=== PATIENT | male | born 1955 | race Caucasian/White ===

== ENCOUNTER 2022-07-22 08:50 | Day surgery (SDC) | payer BC, SELFPAY ==
--- NOTE | 2022-07-21 13:33 | HO.ANESPROP2 ---
HPI - Anesthesia Eval Consult details Narrative: 66yo M for Colonoscopy PMFSH Past Medical History Medical History Acute bronchitis HTN (hypertension) Impaired fasting glucose Surgical History Surgical History H/O colonoscopy History of hand surgery History of left hip replacement Social History Social History Patient Tobacco Use Status: Former Tobacco user Use of substances other than those prescribed or required for medical reasons: No Are you DNR?: No Advance Directives: No Advance Directives Information Provided: Yes Recently lost weight without trying: Yes How much weight loss: 34pounds or more Nutrition Risks: No Nutritional Risk Meds Allergies Allergy/AdvReac Type Severity Reaction Status Date / Time anti perspirant Allergy Severe HIVES Uncoded 07/22/22 09:19 Home Medications Medication Instructions Recorded Confirmed Last Taken Type lisinopril 20 mg tablet 20 mg PO DAILY 07/21/22 07/21/22 Unknown History Exam Exam Date and Time: July 21, 2022 1333 Assessment and Plan Assessment Anesthesia Assessment: Chart Reviewed
[2022-07-22 09:20] VITALS: BMI 29.5
[2022-07-22 09:31] VITALS: BP 175/79; PULSE 65; RESP 16; TEMP 36.2; O2SAT 98
[2022-07-22 09:52] VITALS: BP 112/66; PULSE 71; RESP 16
[2022-07-22 09:56] VITALS: BP 127/67; PULSE 61; RESP 16; O2SAT 97
[2022-07-22] MEDS: Lactated Ringers 1,000 ML 100 ML IVCONT (09:56)
[2022-07-22 10:00] VITALS: BP 131/64; PULSE 61; RESP 16; O2SAT 98
--- NOTE | 2022-07-22 10:21 | MHC.SHP ---
Pre-Procedural Eval Section A Date of Service: 07/22/22 Section B Chief Complaint: screening Details of Present Illness: see H&P no changes Relevant Family History (Specify if Yes): No Relevant Social History: None Present Medications: see Short Stay Collaborative assessment Medical History: No relevant PMH History of Previous Operations: No relevant previous surgery Allergies: Allergies Allergy/AdvReac Type Severity Reaction Status Date / Time anti perspirant Allergy Severe HIVES Uncoded 07/22/22 09:19 Review of Systems Sugical H&P ROS: Negative: Constitution, Cardiovascular, Respiratory, Neurological, Psychiatric, Hem-Onc, Allergic/Immunologic, Gastrointestinal, Genitourinary, Musculoskeletal, Integumentary, Endocrine and Eyes/Ears/Nose/Throat Exam Surgical H&P Exam: Normal: HEENT, Normal: Heart, Normal: Lungs, Normal: Extremities, Normal: Abdomen, Normal: Skin and Normal: Neurological Plan Diagnosis/Plan: Unchanged I have reviewed the history and physical and performed a pertinent physical examination on my patient. No changes have occurred unless specified. Time Spent With Patient Time: Total time managing care of this patient today ____ minutes.
--- NOTE | 2022-07-22 10:28 | PC.NURSE ---
anti aware of vagal response.
--- NOTE | 2022-07-22 10:39 | P.CONAN_ITS ---
[facility] Past Medical History Medical History Acute bronchitis HTN (hypertension) Impaired fasting glucose Surgical History Surgical History H/O colonoscopy History of hand surgery History of left hip replacement History of Problems with Anesthesia: No Social History Social History Patient Tobacco Use Status: Former Tobacco user Use of substances other than those prescribed or required for medical reasons: No Are you DNR?: No Advance Directives: No Advance Directives Information Provided: Yes Recently lost weight without trying: Yes How much weight loss: 34pounds or more Nutrition Risks: No Nutritional Risk Meds Allergies Allergy/AdvReac Type Severity Reaction Status Date / Time anti perspirant Allergy Severe HIVES Uncoded 07/22/22 09:19 Active Medications: Current Medications Albuterol Sulfate (Albuterol Sulfate (0.083%) 2.5 Mg/3 Ml Vial.Neb) 2.5 mg INHALE ONCE PRN PRN Reason: Shortness of Breath/Wheezing Lactated Ringer's (Lr) 1,000 mls @ 100 mls/hr IVCONT .Q10H SHERRY Last Admin: 07/22/22 09:56 Dose: 100 mls/hr Home Medications Medication Instructions Recorded Confirmed Last Taken Type lisinopril 20 mg tablet 20 mg PO DAILY 07/21/22 07/21/22 Unknown History Exam Exam Date and Time: July 22, 2022 1039 Height,Weight and Vital Signs: Height 5 ft 6 in Weight 83.007 kg Last Vital Signs Temp 97.2 F 07/22/22 09:31 Pulse 61 07/22/22 10:00 Resp 16 07/22/22 10:00 BP 131/64 07/22/22 10:00 Pulse Ox 98 07/22/22 10:00 O2 Del Method Room Air 07/22/22 10:00 Airway Mallampati Class: III TM Dist: >3cm Neck ROM: Full Loose/Missing/Broken Teeth: No Heart: RRR Lungs: CTA Assessment and Plan Assessment Anesthesia Assessment: Anesthesia Plan Discussed and Chart Reviewed Final Anesthetic Review History of Problems with Anesthesia: No NPO: Yes ASA Class: II Final Preanesthetic Review: Meds/Allgs Chart Reviewed, Consent Obtained/Reviewed and Anes Risks/Benef Reviewed Patient Risk: Low Procedure Risk: Low Anesthetic Plan Anesthetic Plan: MAC: Disposition: Standard PACU
[2022-07-22 11:00] VITALS: BP 118/60; PULSE 65; RESP 16; TEMP 36.5; O2SAT 99
--- NOTE | 2022-07-22 11:03 | P.BOP_ITS ---
Brief Operative Note Date of Service: 07/22/22 Pre-op diagnosis: screening Post-op diagnosis: same Procedure: colonoscopy Surgeon: Jaden Avitia Anesthesia: MAC Was an Software Engineer Mobile used for this Procedure?: No Estimated blood loss (mL): 0 Pathology: none sent Condition: stable Disposition: PACU
[2022-07-22 11:15] VITALS: BP 136/78; PULSE 67; RESP 16; TEMP 36.6; O2SAT 98
--- NOTE | 2022-07-22 11:46 | OP_ITS ---
DATE OF SERVICE: 07/22/2022 SURGEON: Jaden Avitia MD INDICATIONS: Colon cancer screening. PREOPERATIVE DIAGNOSIS: POSTOPERATIVE DIAGNOSIS: PROCEDURE PERFORMED: Colonoscopy to the terminal ileum. ESTIMATED BLOOD LOSS: COMPLICATIONS: ANESTHESIA: Monitored anesthesia care. ASSISTANTS: SPECIMENS: DESCRIPTION OF PROCEDURE: The procedure was performed on 07/22/2022. A history and physical was performed. The risks and benefits of the procedure were explained to the patient. Informed consent was obtained. The patient was placed in the left lateral decubitus position. A digital rectal exam was performed and was found to be normal. The Olympus pediatric video colonoscope was introduced into the rectum and advanced to the cecum without difficulty. The cecum was identified by transillumination, palpation, and identification of ileocecal valve examination was performed. The scope was removed. He tolerated the procedure well and was returned to the recovery area in stable condition. FINDINGS: The terminal ileum was normal. The visualized colonic mucosa was normal. The quality of the prep was good. No polyps were identified. Retroflexed examination was normal. There was mild sigmoid diverticulosis. IMPRESSION: Normal colonoscopy. RECOMMENDATION: 1. Follow up as needed. 2. Repeat colonoscopy is recommended in 10 years for average risk individuals. MD MAXIME Bo/CLEMENTINA / [id number]
== END 2022-07-22 09:25 | disposition home or self-care (01) ==
PROVIDERS: PCP Family Medicine; Visit Provider Internal Medicine Gastroenterology
PROC: 0DJD8ZZ Inspection of Lower Intestinal Tract, Via Natural or Artificial Opening Endoscopic (ICD-10-PCS; CPT 45378; principal; 2022-07-22 10:10)
DX: Z12.11 Encounter for screening for malignant neoplasm of colon (principal); K57.30 Diverticulosis of large intestine without perforation or abscess without bleeding; K64.8 Other hemorrhoids; I10 Essential (primary) hypertension; J45.20 Mild intermittent asthma, uncomplicated; R73.01 Impaired fasting glucose; Z96.642 Presence of left artificial hip joint; Z87.891 Personal history of nicotine dependence; Z79.899 Other long term (current) drug therapy
CPT/HCPCS: 45378